=== PATIENT | female | born 1955 | race Caucasian/White ===

== ENCOUNTER 2016-12-31 08:04 | Emergency (ER) | payer BC, OTHER ==
[2016-12-31 08:16] VITALS: BP 108/69
--- NOTE | 2016-12-31 08:28 | UC ---
Respiratory Complaint HPI - HPI Summary HPI Summary: Pt presents with cough. She tells me that 2 days ago she developed sinus congestion and a dry cough. She has not taken anything OTC. Has felt hot and cold intermittently, but not sure if she had a fever. Denies ST, earache, headache, SOB, chest pain, abdominal pain, N/V/D/C. - History of Current Complaint Chief Complaint: UCRespiratory Stated Complaint: COUGH Time Seen by Provider: 12/31/16 08:22 Hx Obtained From: Patient Hx Last Menstrual Period: post menopausal Onset/Duration: Sudden Onset Severity Initially: Mild Severity Currently: Mild Character: Cough: Nonproductive - Allergies/Home Medications Allergies/Adverse Reactions: Allergies Allergy/AdvReac Type Severity Reaction Status Date / Time Bee Venom Allergy Intermediate Swelling Verified 12/31/16 08:10 Home Medications: Home Medications Ccbokmgjpyjsa-Sswrnxjhrk-Qprew [Tylenol Cold Multi-Sympto] 1 liq PO 12/31/16 [ History] PMH/Surg Hx/FS Hx/Imm Hx Previously Healthy: Yes - Surgical History Surgical History: Yes Surgery Procedure, Year, and Place: hysterectomy,carpal tunnel bilat,csection x 3 - Family History Known Family History: Positive: None - Social History Alcohol Use: Rare Substance Use Type: None Smoking Status (MU): Never Smoked Tobacco - Immunization History Most Recent Influenza Vaccination: 2017 Review of Systems Constitutional: Chills Skin: Negative Eyes: Negative ENT: Sinus Congestion, Sinus Pain/Tenderness Respiratory: Cough Cardiovascular: Negative Gastrointestinal: Negative All Other Systems Reviewed And Are Negative: Yes Physical Exam Triage Information Reviewed: Yes Appearance: Well-Appearing, Well-Nourished Vital Signs: Initial Vital Signs Temp 98.3 F 12/31/16 08:11 Pulse 71 12/31/16 08:11 Resp 18 12/31/16 08:11 BP 108/69 12/31/16 08:11 Pulse Ox 97 12/31/16 08:11 Vital Signs Reviewed: Yes ENT: Positive: Hearing grossly normal, Pharynx normal, Nasal congestion, TMs normal. Negative: Pharyngeal erythema, Nasal drainage, TM bulging, TM dull, TM red, Tonsillar swelling, Tonsillar exudate, Sinus tenderness Neck: Positive: Supple, Nontender, No Lymphadenopathy Respiratory: Positive: Chest non-tender, No respiratory distress, No accessory muscle use, Wheezing - Right lung > Left lung. Negative: Crackles, Rhonchi Cardiovascular: Positive: RRR, No Murmur, Pulses Normal Neurological: Positive: Alert Psychological: Positive: Age Appropriate Behavior Skin: Negative: rashes UC Diagnostic Evaluation - Laboratory O2 Sat by Pulse Oximetry: 97 Respiratory Course/Dx - Course Course Of Treatment: Bronchitis. Sinusitis. Both likely viral. Early in dz process and has tried nothing OTC. Rx for albuterol and mucinex. - Differential Dx/Diagnosis Differential Diagnosis/HQI/PQRI: Asthma, Bronchitis, Influenza, Lower Resp Infection, Sinusitis Provider Diagnoses: Acute Bronchitis. Sinusitis Discharge - Discharge Plan Condition: Stable Disposition: HOME Prescriptions: Albuterol HFA INHALER* [Ventolin HFA Inhaler*] 1 - 2 puff INH Q6H PRN #1 mdi PRN Reason: Cough guaiFENesin ER TAB [Mucinex*] 600 mg PO BID #20 tab.er Patient Education Materials: Acute Bronchitis (ED) Referrals: Manfred Griffith MD [Primary Care Provider] - Additional Instructions: If you develop a fever, SOB, chest pain, new or worsening symptoms - please call your PCP or go to the ED.
== END 2016-12-31 08:46 | disposition home or self-care (01) ==
LOC: UCEAST 08:04
DX: J20.9 Acute bronchitis, unspecified (principal); J32.9 Chronic sinusitis, unspecified
CPT/HCPCS: 99212; G0463

== ENCOUNTER 2017-11-16 08:20 | Emergency (ER) | payer BC ==
[2017-11-16 08:31] VITALS: BP 130/74
--- NOTE | 2017-11-16 09:24 | ED ---
Respiratory - HPI Summary HPI Summary: cold symptoms for the last several days, denies fever, dry cough, no dyspnea, pleuritic pain, non smoker, no hx of asthma. no wheezing noted, cough nonproducitive - History of Current Complaint Chief Complaint: UCRespiratory Stated Complaint: RESP ISSUE Time Seen by Provider: 11/16/17 09:19 Hx Obtained From: Patient Onset/Duration: Sudden Onset, Lasting Days Initial Severity: Moderate Current Severity: Moderate Pain Intensity: 1 Sputum Amount: None Aggravating Factor(s): Nothing Alleviating Factor(s): Nothing Associated Signs and Symptoms: Nasal Congestion - Risk Factors Pulmonary Embolism Risk Factors: Negative Cardiac Risk Factors: Negative Pseudomonas Risk Factors: Negative Tuberculosis Risk Factors: Negative - Allergy/Home Medications Allergies/Adverse Reactions: Allergies Allergy/AdvReac Type Severity Reaction Status Date / Time bee venom protein (honey bee) Allergy Swelling Verified 11/16/17 08:32 Home Medications: Home Medications NK [No Home Medications Reported] 11/16/17 [History Confirmed 11/16/17] PMH/Surg Hx/FS Hx/Imm Hx Previously Healthy: Yes Endocrine/Hematology History: Denies: Hx Diabetes, Hx Thyroid Disease Cardiovascular History: Denies: Hx Hypertension Respiratory History: Denies: Hx Asthma, Hx Chronic Obstructive Pulmonary Disease (COPD) GI History: Reports: Other GI Disorders - llq pain 2 weeks Denies: Hx Ulcer Musculoskeletal History: Reports: Other Musculoskeletal History - b carpal tunnel - Cancer History Hx Chemotherapy: No Hx Radiation Therapy: No - Surgical History Surgery Procedure, Year, and Place: hysterectomy,carpal tunnel bilat,csection x 3 Infectious Disease History: No Infectious Disease History: Denies: Hx Hepatitis, Hx Human Immunodeficiency Virus (HIV), Traveled Outside the [place] in Last 30 Days - Family History Known Family History: Positive: None - Social History Alcohol Use: Rare Hx Substance Use: No Substance Use Type: Reports: None Smoking Status (MU): Never Smoked Tobacco Review of Systems Positive: Fatigue Eyes: Negative ENT: Other Positive: Sore Throat Cardiovascular: Negative Positive: Cough Gastrointestinal: Negative Genitourinary: Negative Musculoskeletal: Negative Skin: Negative Neurological: Negative Psychological: Normal All Other Systems Reviewed And Are Negative: Yes Physical Exam Triage Information Reviewed: Yes Vital Signs On Initial Exam: Initial Vitals Temp Pulse Resp BP Pulse Ox 36.6 C 80 16 130/74 99 11/16/17 08:28 11/16/17 08:28 11/16/17 08:28 11/16/17 08:28 11/16/17 08:28 Vital Signs Reviewed: Yes Appearance: Positive: Well-Appearing Skin: Positive: Warm, Dry Head/Face: Positive: Normal Head/Face Inspection Eyes: Positive: Normal ENT: Positive: Normal ENT inspection Neck: Positive: Supple Respiratory/Lung Sounds: Positive: Clear to Auscultation Cardiovascular: Positive: Normal Abdomen Description: Positive: Nontender Diagnostics - Vital Signs Vital Signs Temp Pulse Resp BP Pulse Ox 11/16/17 08:28 36.6 C 80 16 130/74 99 - Laboratory Lab Statement: Any lab studies that have been ordered have been reviewed, and results considered in the medical decision making process. Disposition - Diagnoses Provider Diagnoses: Viral URI with cough Discharge - Sign-Out/Discharge Documenting (check all that apply): Patient Departure All imaging exams completed and their final reports reviewed: No Studies - Discharge Plan Condition: Good Disposition: HOME Patient Education Materials: Upper Respiratory Infection (ED) Referrals: Manfred Griffith MD [Primary Care Provider] - - Billing Disposition and Condition Condition: GOOD Disposition: Home
== END 2017-11-16 09:39 | disposition home or self-care (01) ==
LOC: UCEAST 08:20
DX: J06.9 Acute upper respiratory infection, unspecified (principal); R05 Cough; Z91.030 Bee allergy status
CPT/HCPCS: 99211; G0463

== ENCOUNTER 2019-03-21 14:32 | Emergency (ER) | payer BC ==
--- NOTE | 2019-03-21 14:49 | UC ---
Cardiac HPI - HPI Summary HPI Summary: 63 yo with chest pain x 24 hours, with onset yesterday afternoon. There is no associated shortness of breath, diaphoresis, radiation of pain, or prgression with activity. She slept normally last night, but called [facility] today when the pain persisted. Yesterday pain was partly relieved with antacid, taking 4 TUMS. She has not repeated the dose. She also took aspirin. No hx of hypertension, but states that it has been a couple of years since she had a visit to Family Medicine. No FH of CAD: father of "old age" in his late 70's. --last cholesterol check on record at [facility] [place] shows LDL of 144. She has never smoked. - History of Current Complaint Stated Complaint: CHEST PAIN Time Seen by Provider: 03/21/19 14:48 Hx Obtained From: Patient Hx Last Menstrual Period: post menopausal Onset/Duration: Sudden Onset, Lasting Days - 1 Timing: Constant Initial Severity: Moderate - Allergy/Home Medications Allergies/Adverse Reactions: Allergies Allergy/AdvReac Type Severity Reaction Status Date / Time bee venom protein (honey bee) Allergy Swelling Verified 03/21/19 14:59 PMH/Surg Hx/FS Hx/Imm Hx - Additional Past Medical History Additional PMH: hx of osteoporosis Previously Healthy: Yes - Surgical History Surgical History: Yes Surgery Procedure, Year, and Place: hysterectomy,carpal tunnel bilat,csection x 3 - Family History Known Family History: Positive: Other - father old age, mother of burn injury - Social History 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 Negative: Palpitations Gastrointestinal: Positive: Negative Genitourinary: Positive: Negative Motor: Positive: Negative Neurovascular: Positive: Negative Musculoskeletal: Positive: Negative Neurological/Mental Status: Positive: Negative Psychological: Positive: Negative Is Patient Immunocompromised?: No Physical Exam Triage Information Reviewed: Yes Appearance: No Pain Distress, Other: - Looks older than age, in no acute distress. Vital Signs Reviewed: Yes Eye Exam: Other - BATSHEVA Eyes: Positive: Conjunctiva Clear ENT: Positive: Pharynx normal, TMs normal Dental: Positive: Gross Decay/Caries @ - throghout, with many absent teeth. Neck: Positive: Supple, Nontender, No Lymphadenopathy Respiratory: Positive: Lungs clear, Normal breath sounds Cardiovascular: Positive: RRR, Murmur:Sys:Grade _?_/ - 2/6 at left sternal border, no radiation. Abdomen Description: Positive: Nontender, No Organomegaly, Soft Musculoskeletal Exam: Normal Neurological Exam: Normal Neurological: Positive: Alert Skin Exam: Normal Diagnostics - EKG Cardiac Rate: NL Cardiac Rhythm: Sinus: Normal Ectopy: None ST Segment: Normal Re-Evaluation - Re-Evaluation First Eval Re-Evaluation Time: 15:45 Change: Improved Comment: Small emesis post maalox and lidocaine, but overall improved. She has mild persistent mid sternal discomfort, without shortness of breath. She remains in no distress, speaking easily. - Assessment/Plan Course Of Treatment: Suggest trial of H2 juan or PPI, follow up with her PMD to reassess blood pressure early next week. If pain increases or persists, she and her huysband are aware that they should proceed directly to the emergency room for evaluation. - Differential Diagnoses - Chest Pain Differential Diagnosis/HQI/PQRI: Angina, Chest Wall, GI Disease - Clinical Impression Provider Diagnosis: Esophagitis Discharge ED - Sign-Out/Discharge Documenting (check all that apply): Patient Departure All imaging exams completed and their final reports reviewed: No Studies - Discharge Plan Condition: Stable Disposition: HOME Patient Education Materials: Esophagitis (ED) Referrals: Manfred Griffith MD [Primary Care Provider] - Additional Instructions: As discussed, the discomfort is most likely acid irritation of the esophagus. You can continue TUMs, but I suggest that you try over the counter Zantac ( ranitidine) 75mg TWICE daily for 1-2 weeks. This would allow any acid irritation to heal. Eat easily digestible foods such as soups, yogurts, toast, cooked vegetables and fruits. Follow up with Dr. Griffith next week for a blood pressure re-check. IF YOUR PAIN PERSISTS OR WORSENS, IF YOU DEVELOP SHORTNESS OF BREATH, PLEASE CALL 911 AND PROCEED DIRECTLY TO THE EMERGENCY ROOM. - Billing Disposition and Condition Condition: STABLE Disposition: Home
[2019-03-21 14:59] VITALS: BP 149/90
[2019-03-21] MEDS ORDERED: Al Hydrox/Mg Hydrox/Simet LIQ* 30 ML UDC PO ONE (15:09)
[2019-03-21] MEDS ORDERED: Lidocaine 2% VISCOUS* 15 ML UDC PO ONE (15:09)
== END 2019-03-21 16:08 | disposition home or self-care (01) ==
LOC: UCEAST 14:32
DX: K20.8 Other esophagitis (principal); M81.0 Age-related osteoporosis without current pathological fracture; Z91.030 Bee allergy status
CPT/HCPCS: 93005; 99212; A9270-GY; G0463

== ENCOUNTER 2019-04-02 07:23 | Emergency (ER) | payer BC ==
--- OUTSIDE RECORDS SUMMARY | 2019-04-02 07:29 | XMS REPORT | Continuity of Care Document ---
:1955 External Reference #:[id number] Author Name AMOR Hassan Address [address] [place] [address] Problems Active Problems Provider Date Plantar nerve lesion Manfred Griffith M.D. Onset: 07/08/2014 Arthralgia of the ankle and/or foot Manfred Griffith M.D. Onset: 07/08/2014 Hematuria syndrome Manfred Griffith M.D. Onset: 10/06/2012 Left lower quadrant pain Manfred Griffith M.D. Onset: 10/06/2012 Acute upper respiratory infection Manfred Griffith M.D. Onset: 03/17/2012 Acute sinusitis Manfred Griffith M.D. Onset: 03/17/2012 Contusion of finger Manfred Griffith M.D. Onset: 04/27/2011 Carpal tunnel syndrome Manfred Griffith M.D. Onset: 04/27/2011 Social History Type Date Description Comments Sex Unknown Tobacco Use Start: Unknown Denies Tobacco Use Smoking Status Reviewed: 05/09/17 Denies Tobacco Use ETOH Use Occasional Tobacco Use Start: Unknown Patient has never smoked Recreational Drug Use Denies Drug Use Allergies, Adverse Reactions, Alerts Active Allergies Reaction Severity Comments Date NKDA 04/27/2011 Bee Sting 11/09/2003 Medications Active Medications SIG Qnty Indications Ordering Provider Date Pepcid 1 by mouth 90tabs K21.9 Roxana Hernandez, 03/27/2019 40mg Tablets daily, best PRIMARY COUNSELOR taken on an empty stomach Immunizations CPT Code Status Date Vaccine Lot # [id number] Given 01/19/2017 Tdap Tetanus, W Pertussis [id number] Given 01/19/2017 Pneumococcal Conjugate Vacc-13 [id number] Given 12/08/2012 DO Not Use Split Influenza Virus Vaccine [id number] Vital Signs Date Vital Result Comment 03/27/2019 3:30pm BP Systolic 132 mmHg BP Diastolic 88 mmHg Heart Rate 60 /min Body Temperature 97.2 F Respiratory Rate 15 /min Height 58 inches 4'10" measured 02/28/18 Weight 110.00 lb BMI (Body Mass Index) 23.0 kg/m2 05/01/2018 9:09am BP Systolic 96 mmHg BP Diastolic 80 mmHg Heart Rate 61 /min Body Temperature 97.2 F Respiratory Rate 16 /min Height 58 inches 4'10" measured 02/28/18 Weight 110.00 lb BMI (Body Mass Index) 23.0 kg/m2 Results Description No Information Available Procedures Date Code Description Status 03/24/2018 [id number] Mammogram Completed 02/09/2017 [id number] Mammogram Completed 01/19/2017 [id number] Mammogram Completed 01/27/2015 [id number] Mammogram Completed 12/04/2010 [id number] Colonoscopy Completed 01/29/2009 [id number] Mammogram Completed 08/02/2007 [id number] Mammogram Completed 10/19/2005 [id number] Mammogram Completed Medical Devices Description No Information Available Encounters Description No Information Available Assessments Date Code Description Provider 03/27/2019 R07.89 Other chest pain AMOR Hassan 03/27/2019 K21.9 Gastro-esophageal reflux disease without AMOR Hassan esophagitis Plan of Treatment 03/27/2019 - FARIDA HassanPR07.89 Other chest painK21.9 Gastro- esophageal reflux disease without esophagitisNew Medication:Pepcid 40 mg - 1 by mouth daily, best taken on an empty stomachComments:continue to moderate your diet, and call NATASHA if condition changes/worsens in any wayAllComments: Medication Management Patient Understands medications he 's taking? Yes No Are there Barriers to Adherence? Yes No Has the patient been asked about herbal supplements and therapies, andOTC meds? Yes No As always, we strongly encourage a healthy diet and making physical activity a part of your every day life. If you have questions about how or where to start, please contact the office. Functional Status Description No Information Available Mental Status Description No Information Available Referrals Description No Information Available
[2019-04-02] MEDS ORDERED: Acetaminophen TAB* 325 MG PO ONE (07:32)
--- NOTE | 2019-04-02 07:41 | ED ---
Influenza-Like Illness - HPI Summary HPI Summary: Patient is a 63 y/o F presenting to the ED for a chief complaint of influenza- like symptoms. Patient complains of productive cough and fever that began on . Patient denies sore throat or shortness of breath. No aggravating or alleviating factors are reported. She received influenza vaccination this season. PMHx is denied, including any respiratory problems. Patient denies tobacco use. - History of Current Complaint Chief Complaint: EDFluSymptoms Time Seen by Provider: 04/02/19 07:32 Hx Obtained From: Patient Onset/Duration: Sudden Onset, Still Present Severity: Moderate Associated Signs & Symptoms: Fever - In vitals, 100.8 F, Cough - Allergy/Home Medications Allergies/Adverse Reactions: Allergies Allergy/AdvReac Type Severity Reaction Status Date / Time bee venom protein (honey bee) Allergy Swelling Verified 04/02/19 07:27 Home Medications: Home Medications Azithromyxin REJI (NF) [Z-Reji (Zithromax) 250 mg tabs #6] 2 tab PO .TODAY, THEN 1 DAILY #6 tab 04/02/19 [Rx] Azithromyxin REJI (NF) [Z-Reji (Zithromax) 250 mg tabs #6] 2 tab PO .TODAY, THEN 1 DAILY #6 tab 04/02/19 [Rx] Famotidine TAB 40 MG(NF) [Pepcid TAB 40 MG(NF)] 40 mg PO DAILY 04/02/19 [ History Confirmed 04/02/19] Oseltamivir CAP* [Tamiflu CAP*] 75 mg PO BID 5 Days #10 cap 04/02/19 [Rx] Oseltamivir CAP* [Tamiflu CAP*] 75 mg PO BID 5 Days #10 cap 04/02/19 [Rx] PMH/Surg Hx/FS Hx/Imm Hx Previously Healthy: Yes Endocrine/Hematology History: Denies: Hx Diabetes, Hx Thyroid Disease Cardiovascular History: Denies: Hx Hypertension Respiratory History: Denies: Hx Asthma, Hx Chronic Obstructive Pulmonary Disease (COPD), Other Respiratory Problems/Disorders GI History: Reports: Other GI Disorders - llq pain 2 weeks Denies: Hx Ulcer Musculoskeletal History: Reports: Other Musculoskeletal History - b carpal tunnel Sensory History: Denies: Hx Legally Blind, Hx Deafness Opthamlomology History: Denies: Hx Legally Blind EENT History: Denies: Hx Deafness - Cancer History Hx Chemotherapy: No Hx Radiation Therapy: No - Surgical History Surgical History: Yes Surgery Procedure, Year, and Place: hysterectomy,carpal tunnel bilat,csection x 3 Infectious Disease History: No Infectious Disease History: Denies: Hx Hepatitis, Hx Human Immunodeficiency Virus (HIV), Traveled Outside the [place] in Last 30 Days - Family History Known Family History: Positive: Other - father old age, mother of burn injury - Social History Occupation: Employed Full-time Lives: With Family Alcohol Use: Rare Hx Substance Use: No Substance Use Type: Reports: None Hx Tobacco Use: No Smoking Status (MU): Never Smoked Tobacco Review of Systems Positive: Fever - In vitals, 100.8 F Negative: Sore Throat Positive: Cough - Productive. Negative: Shortness Of Breath All Other Systems Reviewed And Are Negative: Yes Physical Exam - Summary Physical Exam Summary: Constitutional: Well-developed, Well-nourished, Alert. (-) Distressed Skin: Warm, Dry HENT: Normocephalic; Atraumatic Eyes: Conjunctiva normal Neck: Musculoskeletal ROM normal neck. (-) JVD, (-) Stridor, (-) Nuchal rigidity Cardio: Rhythm regular, rate normal, Heart sounds normal; Intact distal pulses; Radial pulses are 2+ and symmetric. (-) Murmur Pulmonary/Chest wall: Effort normal. (-) Respiratory distress, (-) Wheezes, (-) Rales Abd: Soft, (-) tenderness, (-) Distension, (-) Guarding, (-) Rebound Musculoskeletal: (-) Edema Lymph: (+) Cervical adenopathy Neuro: Alert, Oriented x3 Psych: Mood and affect Normal Triage Information Reviewed: Yes Vital Signs On Initial Exam: Initial Vitals Temp Pulse Resp BP Pulse Ox 100.8 F 93 17 148/82 94 04/02/19 07:23 04/02/19 07:23 04/02/19 07:23 04/02/19 07:23 04/02/19 07:23 Vital Signs Reviewed: Yes Procedures - Sedation Patient Received Moderate/Deep Sedation with Procedure: No Diagnostics - Vital Signs Vital Signs Temp Pulse Resp BP Pulse Ox 04/02/19 07:23 100.8 F 93 17 148/82 94 - Laboratory Lab Statement: Any lab studies that have been ordered have been reviewed, and results considered in the medical decision making process. - Radiology Chest X-ray Radiology Interpretation Completed By: Radiologist Summary of Radiographic Findings: Chest X-ray IMPRESSION: Bibasilar atelectasis with no definite pneumonia. Reviewed by Dr. Domínguez. Flu Symptom Course/Dx - Course Course Of Treatment: 63 y/o F p/w fever and cough. - VS febrile. Patient presented with flulike symptoms. Flu A+. Patient well appearing, with stable vitals. CXR w possible PNA, will treat given flu. O2 at 94% on RA. No headache, neck pain or nuchal rigidity. Tolerating by mouth. Plan for discharge w tamiflu, azithromycin. Will return for worsening symptoms. - Diagnoses Provider Diagnoses: Fever, Influenza, Pneumonia Discharge ED - Sign-Out/Discharge Documenting (check all that apply): Patient Departure - Discharge - Discharge Plan Condition: Stable Disposition: HOME Prescriptions: Azithromyxin REJI (NF) [Z-Reji (Zithromax) 250 mg tabs #6] 2 tab PO .TODAY, THEN 1 DAILY #6 tab Azithromyxin REJI (NF) [Z-Reji (Zithromax) 250 mg tabs #6] 2 tab PO .TODAY, THEN 1 DAILY #6 tab Oseltamivir CAP* [Tamiflu CAP*] 75 mg PO BID 5 Days #10 cap Oseltamivir CAP* [Tamiflu CAP*] 75 mg PO BID 5 Days #10 cap Patient Education Materials: Influenza (ED), Bacterial Pneumonia (ED) Forms: *Work Release Referrals: Manfred Griffith MD [Primary Care Provider] - Additional Instructions: You were seen in the emergency department for flulike symptoms. You are flu A+. Please take Tamiflu twice a day for 5 days.Your chest xray showed a possible small pneumonia so please take azithromycin Please follow up with your primary care doctor in next 2-3 days and return to emergency department for shortness of breath, fever greater than 1 week, worsening or concerning symptoms. It was a pleasure taking care of you today. - Billing Disposition and Condition Condition: STABLE Disposition: Home - Attestation Statements Document Initiated by Scribe: Yes Documenting Scribe: Lexie White Provider For Whom Scribe is Documenting (Include Credential): Cruz Domínguez MD Scribe Attestation: I, Lexie White, scribed for Cruz Domínguez MD on 04/02/19 at 0955. Scribe Documentation Reviewed: Yes Provider Attestation: The documentation as recorded by the scribe, Lexie White accurately reflects the service I personally performed and the decisions made by , Cruz Domínguez MD Status of Scribe Document: Viewed
[2019-04-02 08:01] LABS: Influenza A Molecular POSITIVE (Negative)
[2019-04-02 09:56] VITALS: BP 109/64
== END 2019-04-02 09:55 | disposition home or self-care (01) ==
LOC: ED 07:23
DX: J11.00 Influenza due to unidentified influenza virus with unspecified type of pneumonia (principal); R50.9 Fever, unspecified; Z91.030 Bee allergy status
CPT/HCPCS: 71046; 99283; A9270-GY